=== PATIENT | male | born 1960 | race Caucasian/White ===

== ENCOUNTER 2017-01-20 14:00 | Inpatient (IN) | payer BC, MEDICARE, OTHER ==
[2017-01-20] MEDS ORDERED: ATROPINE SULFATE 150 DROP BTL SL PRN (14:16)
[2017-01-20] MEDS ORDERED: PROMETHAZINE HCL 25 MG SUPP.RECT RC PRN (14:16)
[2017-01-20] MEDS ORDERED: LORazepam 1 MG TABLET PO PRN (14:16)
[2017-01-20] MEDS ORDERED: ZOLPIDEM TARTRATE 5 MG TABLET PO PRN (14:16)
[2017-01-20] MEDS ORDERED: guaiFENesin 100 MG/5 ML BTL PO PRN (14:16)
[2017-01-20] MEDS ORDERED: POLYVINYL ALCOHOL 150 DROP BTL EACHEYE PRN (14:16)
[2017-01-20] MEDS ORDERED: HYDROcodone/ACETAMINOPHEN 5 ML UDC PO PRN (14:16)
[2017-01-20] MEDS ORDERED: ACETAMINOPHEN 325 MG TABLET PO PRN (14:16)
[2017-01-20] MEDS ORDERED: ONDANSETRON 4 MG TAB.RAPDIS PO PRN (14:26)
[2017-01-20] MEDS ORDERED: HALOPERIDOL LACTATE 2 MG/ML BTL PO PRN (14:27)
[2017-01-20 15:20] VITALS: BP 61/35
[2017-01-20] MEDS ORDERED: fentaNYL 50 MCG PATCH.TD72 TD SCH (15:30)
--- NOTE | 2017-01-20 15:36 | HP ---
<Joanna Cazares - Last Filed: 01/20/17 15:36> Chief Complaint - Chief Complaint Date of Service: 01/20/17 Time of Service: 15:36 - Patient's Past Medical History Patient History - Medical: No pertinent hx Patient History - Cardiac/Respiratory: Hypertension Patient History - Cancer: Prostate Patient History - Surgical Procedures: Appendectomy, Back Surgery Patient History - Other: None - Family History Mother Family History - Medical: , Depression Family History - Cancer: No pertinent family hx Father Family History - Medical: History Unknown Family History - Cardiac/Respiratory: History Unknown Family History - Cancer: History Unknown - Social History Living Situations: home Psych History: No pertinent hx Smoking Status: Former smoker Have you smoked in the past 12 months: Yes Do you dip or chew tobacco: No - Immunizations Immunizations Up to Date: Yes Hx Pneumococcal Vaccination: No History of Influenza Vaccine: Yes Immunizations: IMMUNIZATION HX Immunizations Up to Date Yes History of Influenza Vaccine Yes Hx Pneumococcal Vaccination No Allergies/Adverse Reactions: Allergies Allergy/AdvReac Type Severity Reaction Status Date / Time No Known Drug Allergies Allergy Unverified 09/06/12 15:18 Home Medications: HOME MEDICATIONS Aspirin [Aspirin Enteric Coated] 81 mg PO DAILY 06/27/14 [Last Taken 06/28/14] Enalapril Maleate [Vasotec] 20 mg PO BID 06/27/14 [Last Taken 06/29/14] Metoprolol Tartrate [Lopressor] 50 mg PO TID 06/27/14 [Last Taken 06/29/14] Omeprazole [Prilosec] 20 mg PO DAILY 06/27/14 [Last Taken 06/28/14] Simvastatin [Zocor] 10 mg PO HS 06/27/14 [Last Taken 06/28/14] Cyclobenzaprine HCl [Flexeril] 10 mg PO TID PRN 03/24/16 [Last Taken Unknown] Escitalopram Oxalate [Lexapro] 10 mg PO DAILY 03/24/16 [Last Taken Unknown] Nystatin [Mycostatin Ointment] 03/24/16 [Last Taken Unknown] Sildenafil Citrate [Viagra] 100 mg PO PRN 03/24/16 [Last Taken Unknown] Exam - Exam Vital Signs: Vital Signs - Last Taken Temp 36.9 C 01/20/17 15:04 Pulse 126 H 01/20/17 15:04 Resp 14 01/20/17 15:04 BP 61/35 01/20/17 15:04 Pulse Ox 85 L 01/20/17 15:04 <Chetan Coombs - Last Filed: 01/21/17 10:32> Chief Complaint - Chief Complaint Chief Complaint: Dying of pancreating cancer History of Present Illness: Actively dying of pancreatic cancer. In hospice with [facility]. Admitted direct for final terminal care, unable to manage at home. - Patient's Past Medical History Patient History - Medical: GERD, Other - Postraumatic headaches Patient History - Cardiac/Respiratory: Hyperlipidemia - Social History Alcohol Use: occasionally Review Of Systems (GEN) - Review of Systems Generalized/Overall Review: Present: Weakness, Malaise EENTM: Present: No Symptoms Reported Respiratory: Present: No Symptoms Reported Cardiac: Present: No Symptoms Reported Abdominal: Present: No Symptoms Reported Genitourinary: Present: No Symptoms Reported Musculoskeletal: Present: No Symptoms Reported Neurological: Present: No Symptoms Reported Skin: Present: No Symptoms Reported Endocrine: Present: No Symptoms Reported Misc: All systems neg except as marked Immunizations: IMMUNIZATION HX Immunizations Up to Date Yes History of Influenza Vaccine Yes Hx Pneumococcal Vaccination No Exam - Exam Vital Signs: Vital Signs - Last Taken Constitutional: Present: Thin and frail ENT Exam: Present: normal ENT inspection Eye Exam: bilateral eye: normal inspection, PERRL, EOMI Neck: Present: normal inspection Respiratory: Present: lungs clear, accessory muscle use Cardiovascular/Chest: Present: no edema, tachycardia Abdomen: Present: Normal bowel sounds, soft, nontender, nondistended, no rebound tenderness, no hepatospenomegaly, no masses Extremity: Present: other - cachectic Skin Exam: Present: no cyanosis, cool/dry Appearance: Present: impaired insight, impaired recent memory, impaired remote memory Eye contact: Present: decreased rate of speech Thoughts: Present: other Assessment/Plan - Narrative Narrative: Hospice care. - Assessment/Plan (1) Hospice care patient Assessment: Terminal Problem: Acute
[2017-01-20] MEDS: MORPHINE SULFATE 10 MG/0.5 ML SYRINGE PO PRN ×2 (15:40→16:56)
[2017-01-20] MEDS ORDERED: HYDROPHILIC OINTMENT 454 APPL JAR TP SCH (21:00)
--- NOTE | 2017-01-21 01:12 | DS ---
<Laurel Vilchis - Last Filed: 01/21/17 01:11> Discharge Summary - Provider Primary Care Provider: Chetan Coombs Admitting Clinician: Joanna Cazares - Additional Data Confirmation of as documented by pronouncing clinician: no pulse, no respirations, no heart sounds Family: at bedside Attending/PCP notified: No Was code activated: No Autopsy requested: No [employer] Rep[employer]r notified: No [employer] notified: Yes Advance Directives: No Hospice patient: Yes <Chetan Coombs - Last Filed: 01/21/17 10:40> Discharge Summary - Diagnosis/Cause of (1) Hospice care patient Problems: Acute (2) Pancreatic cancer Problems: Acute - Summary Details (narrative): Patient was kept comfortable while in the hospital. He peacefully while here which was the expected outcome. I personally directed all of our nurse practitioner care for this person. I arranged his direct admission through [facility]. Procedures Performed: none
== END 2017-01-21 00:23 | disposition expired | DRG 437 ==
LOC: EDBD → MS 14:00 → EDUNIT# 14:00
PROVIDERS: ADMIT Allergy & Immunology; ATTEND Allergy & Immunology
DX: C25.9 Malignant neoplasm of pancreas, unspecified (principal); Z51.5 Encounter for palliative care; K21.9 Gastro-esophageal reflux disease without esophagitis; E11.9 Type 2 diabetes mellitus without complications